=== PATIENT | female | born 1960 | race Caucasian/White ===

== ENCOUNTER 2018-05-06 19:31 | Emergency (ER) | payer OTHER ==
[~2018-05-06] VITALS: Ht 152.4 cm; Wt 67.2 kg
--- NOTE | 2018-05-06 19:47 | ED.ADGEN ---
Past History Past Medical History: Anxiety, GERD, Migraines, Sciatica, Other Past Surgical History: , Hysterectomy, Lumbar Laminectomy, Other Past Surgical History Bladder sling, breast implants, SMA stent and angioplasty Adult General Chief Complaint Chief Complaint ".. I ve been having abd. pain here on the Lt. for past 6 months.. It also present when I wake up in the morning... It just seems worse today... 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 Pt. is described as burning and rates it now as 5-/. Pt. has eaten and has stool today. Pt. was to have follow eval. of SMA and it has been over 10 yrs since colon and EGD. Nothing seems to make pain better. Pt. normally follows at [facility]. Does have some rebound to Lt. upper abd. on exam. Previous abdomen surgeries C-sections, Lumbar Laminectomy, hysterectomy, bladder sling, breast implants, and SMA stenting. Patient states prior ischemic problems treated with the angioplasty and SMA stent. Pt. work up at that time had elevated Amylase. Pt. noted the pain was on the Rt. side of abdomen at that time. . She has quit smoking. Patient denies any intake of bad food. Patient denies any trauma. Patient recent travel and back to [place] visiting family. Pt. denies any specific ill contacts. Patient denies any history immunosuppression. Review of Systems Review of Systems Constitutional: Denies fever or chills [] Eyes: Denies change in visual acuity, redness, or eye pain [] HENT: Denies nasal congestion or sore throat [] Respiratory: Denies cough or shortness of breath [] Cardiovascular: No additional information not addressed in HPI [] GI: Complaints left upper abdominal pain, nausea. Denies vomiting, bloody stools or diarrhea [] : Denies dysuria or hematuria [] Musculoskeletal: Denies back pain or joint pain [] Integument: Denies rash or skin lesions [] Neurologic: Denies headache, focal weakness or sensory changes [] Endocrine: Denies polyuria or polydipsia [] All other systems were reviewed and found to be within normal limits, except as documented in this note. Family History Family History Non- contributory Current Medications Current Medications Current Medications Medications (Trade) Dose Ordered Sig/Marnie Start Time Stop Time Status Last Admin Dose Admin Ceftriaxone Sodium 1 gm/ Sodium Chloride 50 ml @ 100 mls/hr 1X ONCE 05/07/18 01:00 05/07/18 01:09 DC 05/07/18 00:47 100 MLS/HR Ceftriaxone Sodium (Rocephin) 1 gm STK-MED ONCE 05/07/18 00:37 05/07/18 00:38 DC Famotidine (Pepcid Vial) 20 mg 1X ONCE 05/06/18 20:45 05/06/18 20:46 DC 05/06/18 21:09 20 MG Info (Do NOT chart on this entry -- for MONITORING) 1 each PRN DAILY PRN 05/06/18 22:45 05/07/18 01:09 DC Iohexol (Omnipaque 240 Mg/ml) 50 ml STK-MED ONCE 05/06/18 22:33 05/06/18 22:34 DC Iohexol (Omnipaque 300 Mg/ml) 75 ml 1X ONCE 05/06/18 23:00 05/06/18 23:01 DC 05/06/18 23:38 75 ML Lactated Ringer's 1,000 ml @ 100 mls/hr Q10H 05/06/18 20:30 05/07/18 01:09 DC 05/06/18 21:09 100 MLS/HR Magnesium Hydroxide (Milk Of Magnesia) 2,400 mg 1X ONCE 05/07/18 01:00 05/07/18 01:01 DC 05/07/18 00:49 2,400 MG Morphine Sulfate (Morphine 10mg Syringe) 5 mg 1X ONCE 05/07/18 00:00 05/07/18 00:01 DC 05/07/18 00:46 5 MG Ondansetron HCl (Zofran) 8 mg 1X ONCE 05/06/18 20:45 05/06/18 20:46 DC 05/06/18 21:09 8 MG Allergies Allergies Allergies Coded Allergies Type Severity Reaction Last Updated Verified NKMA Allergy Unknown 05/06/18 Yes NSAIDS (Non-Steroidal Anti-Inflamma Adverse Reaction Intermediate is on plavix 05/06/18 Yes Physical Exam Physical Exam Constitutional: Moderate distress, non-toxic appearance. [] HENT: Normocephalic, atraumatic, bilateral external ears normal, oropharynx moist, no oral exudates, nose normal. [] Eyes: PERRLA, EOMI, conjunctiva normal, no discharge. [] Neck: Normal range of motion, no tenderness, supple, no stridor. [] Cardiovascular:Heart rate regular rhythm, no murmur [] Lungs & Thorax: Bilateral breath sounds equal at apexes on auscultation [] Breast implants. Abdomen: Bowel sounds normal, soft, left upper quadrant tenderness, no masses, no pulsatile masses. Distended. [] Mild rebound to left upper quadrant. Old surgery scars Skin: Warm, dry, no erythema, no rash. [] Back: No tenderness, no CVA tenderness. [Old surgery scar. Extremities: No tenderness, no cyanosis, no clubbing, ROM intact, no edema. [] No heel tap or psoas Neurologic: Alert and oriented X 3, normal motor function, normal sensory function, no focal deficits noted. [] Psychologic: Affect anxious, judgement normal, mood normal. [] Current Patient Data Vital Signs Vital Signs Date Time Temp Pulse Resp B/P (MAP) Pulse Ox O2 Delivery O2 Flow Rate FiO2 05/07/18 00:40 69 20 130/71 (90) Room Air 05/06/18 19:40 98.1 99 Lab Results Laboratory Tests Test 05/06/18 20:00 05/06/18 20:10 Urine Collection Type Void Urine Color Yellow Urine Clarity Clear Urine pH 5.5 Urine Specific [place] 1.010 Urine Protein Neg (NEG-TRACE) Urine Glucose (UA) Neg mg/dL (NEG) Urine Ketones (Stick) Neg mg/dL (NEG) Urine Blood Small (NEG) Urine Nitrite Neg (NEG) Urine Bilirubin Neg (NEG) Urine Urobilinogen Dipstick 0.2 mg/dL (0.2 mg/dL) Urine Leukocyte Esterase Small (NEG) Urine RBC Occ /HPF (0-2) Urine WBC 5-10 /HPF (0-4) Urine Squamous Epithelial Cells Mod /LPF Urine Bacteria 0 /HPF (0-FEW) Urine Mucus Slight /LPF White Blood Count 7.6 x10^3/uL (4.0-11.0) Red Blood Count 4.09 x10^6/uL (3.50-5.40) Hemoglobin 12.5 g/dL (12.0-15.5) Hematocrit 37.2 % (36.0-47.0) Mean Corpuscular Volume 91 fL (79-100) Mean Corpuscular Hemoglobin 31 pg (25-35) Mean Corpuscular Hemoglobin Concent 34 g/dL (31-37) Red Cell Distribution Width 13.6 % (11.5-14.5) Platelet Count 247 x10^3/uL (140-400) Neutrophils (%) (Auto) 46 % (31-73) Lymphocytes (%) (Auto) 46 % (24-48) Monocytes (%) (Auto) 6 % (0-9) Eosinophils (%) (Auto) 1 % (0-3) Basophils (%) (Auto) 1 % (0-3) Neutrophils # (Auto) 3.5 x10^3uL (1.8-7.7) Lymphocytes # (Auto) 3.4 x10^3/uL (1.0-4.8) Monocytes # (Auto) 0.5 x10^3/uL (0.0-1.1) Eosinophils # (Auto) 0.1 x10^3/uL (0.0-0.7) Basophils # (Auto) 0.0 x10^3/uL (0.0-0.2) Prothrombin Time 9.7 SEC (9.4-11.4) Prothrombin Time INR 1.0 (0.9-1.1) PTT 24 SEC (23-33) Sodium Level 139 mmol/L (136-145) Potassium Level 3.6 mmol/L (3.5-5.1) Chloride Level 102 mmol/L (98-107) Carbon Dioxide Level 24 mmol/L (21-32) Anion Gap 13 (6-14) Blood Urea Nitrogen 14 mg/dL (7-20) Creatinine 0.8 mg/dL (0.6-1.0) Estimated GFR (Cockcroft-Gault) 74.2 Glucose Level 101 mg/dL (70-99) H Calcium Level 9.3 mg/dL (8.5-10.1) Total Bilirubin 0.2 mg/dL (0.2-1.0) Direct Bilirubin < 0.1 mg/dL (0.0-0.2) Aspartate Amino Transferase (AST) 16 U/L (15-37) Alanine Aminotransferase (ALT) 24 U/L (14-59) Alkaline Phosphatase 77 U/L (46-116) Creatine Kinase 121 U/L (26-192) Troponin I Quantitative < 0.017 ng/mL (0-0.055) Total Protein 7.6 g/dL (6.4-8.2) Albumin 4.2 g/dL (3.4-5.0) Amylase Level 57 U/L (25-115) Lipase 159 U/L (73-393) EKG EKG My interpretation EKG shows a sinus rhythm at 69 bpm. There is some non- specific contour changes anterior septal region. But no findings acute STEMI of contralateral changes.[] Radiology/Procedures Radiology/Procedures My interpretation of abdomen film shows no acute cardiopulmonary findings on chest portion of film. No free air in the diaphragm. Bilateral breast implants. Necklace. Abdomen portion of film shows previous surgery clips. Nonobstructive bowel gas pattern however there is significant amount of stool throughout the colon. Stomach portion of film has mildly distended. The SMA stent is visible in mid abdomen.[] CT of abdomen shows no acute surgical processes see formal report when available Course & Med Decision Making Course & Med Decision Making Pertinent Labs and Imaging studies reviewed. (See chart for details) Patient's stay on a clear fluid diet only for the next 2 days. No solids or milk products or milk. Must allow bowel rest. Must follow-up primary care and GI. Patient is overdue for EGD and colonoscopy. Patient to follow-up and have SMA stent flow evaluated. May require angiogram evaluation of abdomen arterial circulation . Pt. may be able to have a ultrasound evaluation of the SMA stent. May need follow at a teaching center for these evaluations or return to [facility]. Patient to take Zantac 150 mg twice a day in event gastritis is cause of pain. Pt. to take Keflex 500 three times a day for mild UTI. Must schedule follow up with GI and primary. Continue Plavix. Have repeat Amylase and Lipase these tend to elevate if cause of pain is ischemic bowel issues. Pt. currently declines admission or transfer pt exhibit UCAR capacity and seems aware of risks of acute Ischemic event of mesentery arteries. [] Final Impression Final Impression 1. Abdomen Pain 2. Constipation 3. Hx. SMA stent 4. UTI[] Dragon Disclaimer Dragon Disclaimer This electronic medical record was generated, in whole or in part, using a voice recognition dictation system. MONICA MIRANDA MD May 06, 2018 19:47
[2018-05-06] MEDS ORDERED: ATOR20TA PO (20:25)
[2018-05-06] MEDS ORDERED: MAGN400C PO (20:25)
[2018-05-06] MEDS ORDERED: RIZA10TA PO (20:25)
[2018-05-06] MEDS ORDERED: ASPI-630 PO (20:25)
[2018-05-06] MEDS ORDERED: CLOP75TA57 PO (20:25)
[2018-05-06] MEDS ORDERED: ACET500T68 PO (20:25)
[2018-05-06] MEDS ORDERED: IV RINGERS SOLUTION,LACTATED 1,000 ML IV SCH (20:30)
[2018-05-06 20:40] LABS: BASO % 1 % (0-3); EOS # 0.1 x10^3/uL (0.0-0.7); EOS % 1 % (0-3); HEMATOCRIT 37.2 % (36.0-47.0); HEMOGLOBIN 12.5 g/dL (12.0-15.5); LYMPH # 3.4 x10^3/uL (1.0-4.8); LYMPH % 46 % (24-48); MEAN CORPUSCULAR HEMOGLOBIN 31 pg (25-35); MEAN CORPUSCULAR HGB CONC 34 g/dL (31-37); MEAN CORPUSCULAR VOLUME 91 fL (79-100); MONO # 0.5 x10^3/uL (0.0-1.1); MONO % 6 % (0-9); NEUT # 3.5 x10^3uL (1.8-7.7); NEUT % 46 % (31-73); PLATELET COUNT 247 x10^3/uL (140-400); RED BLOOD COUNT 4.09 x10^6/uL (3.50-5.40); RED CELL DISTRIBUTION WIDTH 13.6 % (11.5-14.5); WHITE BLOOD COUNT 7.6 x10^3/uL (4.0-11.0)
[2018-05-06 20:44] LABS: BACTERIA,URINE 0 /HPF (0-FEW); BILIRUBIN,URINE NEG (NEG); CLARITY,URINE CLEAR; COLOR,URINE YELLOW; GLUCOSE,URINE NEG (NEG); NITRITE,URINE NEG (NEG); RBC,URINE OCC /HPF (0-2); SQUAMOUS EPITHELIAL CELL,UR MOD /LPF; UROBILINOGEN,URINE 0.2 mg/dL (0.2 mg/dL)
[2018-05-06] MEDS ORDERED: FAMOTIDINE 20 MG/2 ML VIAL IVP ONE (20:45)
[2018-05-06] MEDS ORDERED: ONDANSETRON PF 4 MG/2 ML VIAL. IV ONE (20:45)
[2018-05-06 20:47] LABS: ALBUMIN 4.2 g/dL (3.4-5.0); ALK PHOS 77 U/L (46-116); ALT (SGPT) 24 U/L (14-59); AMYLASE 57 U/L (25-115); ANION GAP 13 (6-14); AST (SGOT) 16 U/L (15-37); BLOOD UREA NITROGEN 14 mg/dL (7-20); CALCIUM 9.3 mg/dL (8.5-10.1); CARBON DIOXIDE 24 mmol/L (21-32); CHLORIDE 102 mmol/L (98-107); CREATININE 0.8 mg/dL (0.6-1.0); DIRECT BILIRUBIN < 0.1 mg/dL (0.0-0.2); GFR 74.2; GLUCOSE 101 mg/dL (70-99); LIPASE 159 U/L (73-393); POTASSIUM 3.6 mmol/L (3.5-5.1); SODIUM 139 mmol/L (136-145); TOTAL BILIRUBIN 0.2 mg/dL (0.2-1.0); TOTAL PROTEIN 7.6 g/dL (6.4-8.2)
--- NOTE | 2018-05-06 20:58 | EKG ---
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
[2018-05-06] MEDS ORDERED: IOHEXOL 240 MG/ML 50ML VIAL. ONE (22:33)
[2018-05-06] MEDS ORDERED: CONTRAST GIVEN MC PRN (22:45)
[2018-05-06] MEDS ORDERED: IOHEXOL 300 MG/ML 75 ML VIAL. IV ONE (23:00)
[2018-05-07] MEDS ORDERED: MORPHINE SULFATE 10 MG/ML SYRINGE. SQ ONE
--- NOTE | 2018-05-07 00:04 | RAD ---
CT abdomen and pelvis with IV and oral contrast Clinical Indication: Left upper abdominal pain for 6 months, progressive over the last 3 days COMPARISON: None. TECHNIQUE: Multiple contiguous axial images were obtained throughout the abdomen and pelvis with the use of IV contrast and oral. Axial images were reformatted into coronal and sagittal planes. 75 mL Omni 300 was administered. Abdomen findings: The liver, gallbladder, spleen, pancreas, and adrenal glands are unremarkable. The kidneys are unremarkable. There is no significant mesenteric or retroperitoneal adenopathy identified. There is no evidence of free intraperitoneal fluid or pneumoperitoneum. Visualized portions of the bowel are grossly unremarkable. Normal appendix. SMA stent. Mild atherosclerosis of the abdominal aorta and its branches. Pelvis findings: The bladder and distal ureters are unremarkable. Hysterectomy. There is no significant pelvic ascites. No significant iliac or inguinal adenopathy is identified. No acute osseous abnormality. Mild multilevel degenerative changes of the visualized spine. Multilevel limbus vertebrae. IMPRESSION: No acute intra-abdominal or intrapelvic process identified. PQRS Compliance Statement: One or more of the following individualized dose reduction techniques were utilized for this examination: 1. Automated exposure control 2. Adjustment of the mA and/or kV according to patient size 3. Use of iterative reconstruction technique Electronically signed by: León Canela MD (05/07/2018 12:00 AM) [facility]
[2018-05-07] MEDS ORDERED: cefTRIAXone SODIUM 1 GM VIAL IV ONE (00:37)
[2018-05-07] MEDS ORDERED: CEPH-264 PO (00:38)
[2018-05-07] MEDS ORDERED: RANI150T21 PO (00:38)
[2018-05-07 00:40] VITALS: BP 130/71
[2018-05-07] MEDS ORDERED: MAGNESIUM HYDROXIDE 2,400 MG/30 ML ORAL.SUSP. PO ONE (01:00)
--- NOTE | 2018-05-07 08:33 | RAD ---
Single view chest and upright and supine AP views abdomen 05/06/2018 CLINICAL INDICATION: Left-sided abdominal pain. COMPARISON: Same day CT abdomen and pelvis. FINDINGS: Cardiac and mediastinal silhouettes are unremarkable. No pleural effusion, pneumothorax or focal consolidation. Minimal right basilar atelectasis or scarring. There is a nonobstructive bowel gas pattern. Moderate retained colonic stool throughout. There is a vascular stent in the region of the celiac. No pneumoperitoneum. IMPRESSION: 1. No acute cardiopulmonary abnormality. 2. No radiographic evidence of bowel obstruction or pneumoperitoneum. Electronically signed by: Kain Wilkins MD (05/07/2018 8:30 AM) [facility]
== END 2018-05-07 01:04 | disposition home or self-care (01) ==
LOC: ER 19:31
DX: N39.0 Urinary tract infection, site not specified (principal); K59.00 Constipation, unspecified; F41.9 Anxiety disorder, unspecified; K21.9 Gastro-esophageal reflux disease without esophagitis; G43.909 Migraine, unspecified, not intractable, without status migrainosus; Z98.890 Other specified postprocedural states; Z90.710 Acquired absence of both cervix and uterus; Z98.61 Coronary angioplasty status; Z88.6 Allergy status to analgesic agent
CPT/HCPCS: 36415; 74022; 74177; 80048; 80076; 81001; 82150; 82550; 83690; 84484; 85025; 85610; 85730; 87086; 93005; 96372; 96374; 96375; 99284; J0696; J2270; J2405; J3490; J7120; Q9967; 96365

== ENCOUNTER → 2018-06-16 | Outpatient (CLI) | payer OTHER ==
[~2018-06-16] MED LIST: ACET500T68 PO; ASPI-630 PO; ATOR20TA PO; BARIUM SULFATE 60% 355 ML SUSP PO ONE; CEPH-264 PO; CLOP75TA57 PO; MAGN400C PO; RANI150T21 PO; RIZA10TA PO
--- NOTE | 2018-06-16 15:40 | RAD ---
SMALL BOWEL SERIES History: Left upper quadrant pain for one year, nausea, mesenteric artery stent Comparison: CT exam May 06, 2018 Findings: Small bowel examination was performed. Building Drafting Officer radiograph demonstrates nonobstructive bowel gas pattern. There is stent in the region of the superior mesenteric artery. There is normal transit of contrast through the small bowel, some contrast in the ascending colon at about 110 minutes. Small bowel is not significantly dilated. No definitive stricture is identified. Impression: 1. There is no evidence of obstruction or significant stricture. There is stent in the region of the superior mesenteric artery. Electronically signed by: Evan Rader MD (06/16/2018 3:36 PM) [facility]
== END | disposition home or self-care (01) ==
LOC: RAD 07:36
PROVIDERS: ATTEND Internal Medicine Gastroenterology
DX: R10.32 Left lower quadrant pain (principal); R11.0 Nausea; K58.9 Irritable bowel syndrome, unspecified
CPT/HCPCS: 74250

== ENCOUNTER → 2018-07-03 | Outpatient (CLI) | payer OTHER ==
[~2018-07-03] MED LIST changes: -BARIUM SULFATE 60% 355 ML SUSP PO ONE; +IOHEXOL 350 MG/ML 100 ML VIAL. IV ONE
--- NOTE | 2018-07-03 14:34 | RAD ---
CT angiography of the chest, abdomen, and pelvis 07/03/2018 INDICATION: Superior mesenteric arteries placed since December 2017. History of celiac artery occlusion. Chronic pain. The left upper quadrant midline back pain. Evaluate for mesenteric ischemia. TECHNIQUE: Multidetector CT imaging was obtained of the chest, abdomen and pelvis. Chest imaging was performed both before and after the administration of IV contrast. Abdominal and pelvic imaging was performed following the administration of contrast. 3-D reconstructions of thoracic, abdominal, pelvic vasculature were created on an independent workstation and reviewed. FINDINGS: Heart size is top normal. No pericardial effusion is identified. No mediastinal adenopathy is seen. Artifact from dense contrast in the left brachiocephalic vein obscures the origin of the major arch vessels. No overt evidence of high-grade stenosis or occlusion is identified. The thoracic aorta demonstrates no evidence of dissection or aneurysm. The abdominal aorta demonstrates no evidence of aneurysm or dissection. No significant aortoiliac stenosis is identified. There is a proximal superior mesenteric artery stent, widely patent. 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 There is retrograde filling of a celiac trunk, via the gastroduodenal artery, giving rise to the left gastric artery, splenic artery, and common hepatic artery. Some tortuosity and mild stenosis of the right renal artery is noted. Left renal artery is widely patent. Findings are unchanged. The inferior mesenteric artery is patent and normal caliber. No pneumothorax or pleural effusion is seen. No focal consolidative infiltrate is identified. Mild discoid atelectasis noted in the right middle lobe. Emphysematous changes noted in the lungs. Bilateral breast augmentation noted. No acute osseous changes are identified. Stable degenerative changes lumbosacral junction are noted. IMPRESSION: Occluded celiac artery with patent proximal SMA stent, and retrograde filling of the celiac axis via the GDA. No acute vascular abnormalities are identified. No acute changes from prior exam are seen. CT DOSING PQRS STATEMENT: One or more of the following individualized dose reduction techniques were utilized for this examination: 1. Automated exposure control 2. Adjustment of the mA and/or kV according to patient size 3. Use of iterative reconstruction technique Electronically signed by: Gurmeet Berumen MD (07/03/2018 2:30 PM) [id number]
== END | disposition home or self-care (01) ==
LOC: CT 08:33
PROVIDERS: ATTEND Specialist
DX: I77.4 Celiac artery compression syndrome (principal); J98.11 Atelectasis; I70.1 Atherosclerosis of renal artery; M47.897 Other spondylosis, lumbosacral region; G89.29 Other chronic pain
CPT/HCPCS: 71275; 74174; Q9967

== ENCOUNTER → 2018-12-29 | Outpatient (CLI) | payer OTHER ==
[~2018-12-29] MED LIST changes: -IOHEXOL 350 MG/ML 100 ML VIAL. IV ONE; +RANI-376 PO; -RANI150T21 PO
--- NOTE | 2019-01-19 15:57 | RAD ---
DATE: 01/19/2019 EXAM: MAMMO DIO SCREENING BILATERAL HISTORY: Routine screening. COMPARISON: None This study was interpreted with the benefit of Computerized Aided Detection (CAD). FINDINGS: Breast Density: HETERO The breast parenchyma Is heterogeneously dense, which could reduce sensitivity of mammography. Breast parenchyma level C. The skin and nipples are within normal limits. No suspicious calcifications, spiculated mass or area of architectural distortion. Bilateral breast implants noted. 5 mm round mass in the outer lower quadrant of the left breast approximately 6 cm from the nipple on cc view likely at 3-4:00 position. Round mass with well-circumscribed margins measuring 9 mm in the central breast just medial to the posterior nipple line approximately 4 cm from the nipple on cc view. Another round mass measuring 3 mm medial to the posterior nipple line approximately 5 cm from the nipple on cc view. IMPRESSION: Multiple round masses in the left breast likely cysts or lymph nodes. BI-RADS CATEGORY: 0 INCOMPLETE: NEED ADDITIONAL IMAGING EVAULATION AND/OR PRIOR MAMMOGRAMS FOR COMPARISON RECOMMENDED FOLLOW-UP: ADD ADDITIONAL IMAGING. Ultrasound of the left breast recommended. PQRS compliance statement: Patient information was entered into a reminder system with a target due date for the next mammogram. Mammography is a sensitive method for finding small breast cancers, but it does not detect them all and is not a substitute for careful clinical examination. A negative mammogram does not negate a clinically suspicious finding and should not result in delay in biopsying a clinically suspicious abnormality. "Our facility is accredited by the [employer] Mammography Program."
== END | disposition home or self-care (01) ==
LOC: MAMMO 07:52
PROVIDERS: ATTEND General Practice
DX: Z12.31 Encounter for screening mammogram for malignant neoplasm of breast (principal); N63.23 Unspecified lump in the left breast, lower outer quadrant
CPT/HCPCS: 77063; 77067

== ENCOUNTER → 2019-01-24 | Outpatient (CLI) | payer OTHER ==
--- NOTE | 2019-01-24 16:10 | RAD ---
Thyroid sonogram Clinical indications: Abnormal Thermoscan. FINDINGS: The longitudinal AP and transverse dimensions of the right lobe are 5.2 cm and 1.3 cm and 1.8 cm respectively. The longitudinal AP and transverse dimensions of the left lobe are 3.9 cm and 1.1 cm and 1.7 cm respectively. There is a small colloid cyst of the superior pole of the left lobe measuring 2 mm in size. No thyroid mass is seen otherwise. The isthmus measures 2.2 mm in thickness and is homogeneous. IMPRESSION: No thyroid mass. Small cyst of the left lobe. Electronically signed by: Brien Beck MD (01/24/2019 4:07 PM) [facility]
--- NOTE | 2019-01-24 16:22 | RAD ---
INDICATION: 58 year-old female presents for further evaluation of an abnormality seen on prior mammogram TECHNIQUE: Targeted high resolution sonography of the region of clinical concern was performed. COMPARISON: None FINDINGS: Targeted ultrasound of the mammographic area of concern was performed. 3:00 position, 6 cm from the nipple: An anechoic avascular mass of circumscribed margins and round/oval shape is present. It demonstrates posterior acoustic enhancement and a parallel orientation. It measures 0.4 x 0.3 x 0.4 cm 11:00 position, 4 cm from the nipple: An anechoic avascular mass of circumscribed margins and round/oval shape is present. It demonstrates posterior acoustic enhancement and a parallel orientation. It measures 0.7 x 0.7 x 0.8 cm. 11:00 position, 5 cm from the nipple: A 0.3 x 0.3 x 0.3 cm hypoechoic nodule with slightly irregular margins is seen. IMPRESSION: Probably benign finding. RECOMMENDATION: Recommend follow up left breast ultrasound in 6 months. BI-RADS 3: Probably Benign Electronically signed by: Chad Nelson MD (01/24/2019 4:19 PM) [facility]
== END | disposition home or self-care (01) ==
LOC: US 12:10
PROVIDERS: ATTEND General Practice
DX: E04.1 Nontoxic single thyroid nodule (principal); N63.23 Unspecified lump in the left breast, lower outer quadrant; N63.22 Unspecified lump in the left breast, upper inner quadrant; Z80.8 Family history of malignant neoplasm of other organs or systems
CPT/HCPCS: 76536; 76641

== ENCOUNTER 2019-06-30 13:26 | Emergency (ER) | payer OTHER ==
[2019-06-30 13:36] VITALS: BP 139/89
[2019-06-30] MEDS ORDERED: DOXY100T PO (14:29)
--- NOTE | 2019-06-30 14:29 | RAD ---
CHEST PA LATERAL INDICATION: Cough. COMPARISON STUDY: None. FINDINGS: Lungs: Normal lung volume. No pulmonary mass or consolidation. The tracheobronchial tree and hilar structures are normal. Pleura: No pleural effusion or pneumothorax. Heart and Mediastinum: The cardiomediastinal silhouette is normal. The great vessels of the thorax are normal. Bones and Soft Tissues: The bones and soft tissues are within normal limits. IMPRESSION: No acute cardiopulmonary process. Electronically signed by: Evan Montana MD (06/30/2019 2:26 PM) [facility]
--- NOTE | 2019-06-30 17:19 | PHYS DOC ---
Past History Past Medical History: No Pertinent History Past Surgical History: Hysterectomy, Other Additional Past Surgical Histo: stent placed in abdomen for stenosis 3 years ag o Alcohol Use: None Drug Use: None Adult General Chief Complaint Chief Complaint: COUGH HPI HPI Patient is a 59-year-old female presenting with chief complaint of cough productive of yellow sputum and chest tightness with coughing and runny nose sinus congestion postnasal drip going on 10 days now was noticing symptoms. She says she usually gets an antibiotic after an over a week. 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 Review of Systems Review of Systems Constitutional: Denies fever or chills [] Eyes: Denies change in visual acuity, redness, or eye pain [] Musculoskeletal: Denies back pain or joint pain [] Integument: Denies rash or skin lesions [] All other systems were reviewed and found to be within normal limits, except as documented in this note. Allergies Allergies Allergies Coded Allergies Type Severity Reaction Last Updated Verified NKMA Allergy Unknown 05/06/18 Yes NSAIDS (Non-Steroidal Anti-Inflamma Adverse Reaction Intermediate is on plavix 05/06/18 Yes Physical Exam Physical Exam Constitutional: Well developed, well nourished, no acute distress, non-toxic appearance. [] HENT: Normocephalic, atraumatic, bilateral external ears normal, oropharynx moist, no oral exudates, nose normal. [] Eyes: PERRLA, EOMI, conjunctiva normal, no discharge. [] Neck: Normal range of motion, no tenderness, supple, no stridor. [] Cardiovascular:Heart rate regular rhythm, no murmur [] Lungs & Thorax: Bilateral breath sounds clear to auscultation [] Abdomen: Bowel sounds normal, soft, no tenderness, no masses, no pulsatile masses. [] Skin: Warm, dry, no erythema, no rash. [] Back: No tenderness, no CVA tenderness. [] Extremities: No tenderness, no cyanosis, no clubbing, ROM intact, no edema. [] Neurologic: Alert and oriented X 3, normal motor function, normal sensory function, no focal deficits noted. [] Psychologic: Affect normal, judgement normal, mood normal. [] Current Patient Data Vital Signs Vital Signs Date Time Temp Pulse Resp B/P (MAP) Pulse Ox O2 Delivery O2 Flow Rate FiO2 06/30/19 13:36 98.0 109 20 96 Room Air one Temperature (Fahrenheit): * 98.0 degrees F (97.6-99.5) Patient Temperature * 98.0 degrees F (97.5-99.5) Temperature Source * Oral Blood Pressure Systolic * 139 mm Hg (100-140) Blood Pressure Diastolic * 89 mm Hg (60-100) Blood Pressure Mean * 106 mm Hg Pulse Rate * 109 beats per minute (60-90) H Respiratory Rate * 20 breaths per minute (12-24) Oxygen Delivery Method * Room Air Bedside Pulse Oximetry * 96 % Treatment Prior to Arrival * No Complaint of Pain * No LOC * Alert Coma Scale Eye Opening * 4-Spontaneous Coma Scale Motor EKG EKG [] Radiology/Procedures Radiology/Procedures [] Impressions: Lungs: Normal lung volume. No pulmonary mass or consolidation. The tracheobronchial tree and hilar structures are normal. Pleura: No pleural effusion or pneumothorax. Heart and Mediastinum: The cardiomediastinal silhouette is normal. The great vessels of the thorax are normal. Bones and Soft Tissues: The bones and soft tissues are within normal limits. IMPRESSION: No acute cardiopulmonary process. Electronically signed by: Darrick Greene MD (06/30/2019 2:26 PM) [facility] DICTATED AND SIGNED BY: DARRICK GREENE MD DATE: 06/30/19 142 CC: ALEXANDRA BECKMAN MD; KEVIN FELICIANO DO ~ Course & Med Decision Making Course & Med Decision Making Pertinent Labs and Imaging studies reviewed. (See chart for details) 59-year-old female presenting with cough rhythm one week slowly getting worse chest x-ray clear wants antibiotics talked about risks and benefits discussion for doxycycline was provided Dragon Disclaimer Dragon Disclaimer This electronic medical record was generated, in whole or in part, using a voice recognition dictation system. Departure Departure: Impression: Primary Impression: Bronchitis Disposition: HOME, SELF-CARE Condition: STABLE Patient Instructions: Cough, Adult, [id number] Scripts Doxycycline Hyclate (DOXYCYCLINE HYCLATE) 100 Mg Tablet 1 TAB PO BID for cough, #14 TAB Prov: ALEXANDRA BECKMAN MD 06/30/19 ALEXANDRA BECKMAN MD Jun 30, 2019 17:19
== END 2019-06-30 14:43 | disposition home or self-care (01) ==
LOC: ER 13:26
DX: J40 Bronchitis, not specified as acute or chronic (principal); Z88.6 Allergy status to analgesic agent
CPT/HCPCS: 71046; 99284

== ENCOUNTER 2020-02-09 11:13 | Emergency (ER) | payer OTHER ==
[~2020-02-09] VITALS: Ht 152.4 cm; Wt 59.0 kg
[~2020-02-09 11:13] MED LIST changes: +DOXY100T PO
[2020-02-09] MEDS ORDERED: MECLIZINE 12.5 MG TABLET. PO ONE (11:30)
[2020-02-09] MEDS ORDERED: MECL-75 PO (11:36)
--- NOTE | 2020-02-09 11:37 | PHYS DOC ---
Past History Past Medical History: Other Additional Past Medical Histor: SUPERIOR MESSENTERIC ARTERY STENT Past Surgical History: Hysterectomy, Other Additional Past Surgical Histo: stent placed in abdomen for stenosis 3 years ago Alcohol Use: Occasionally Drug Use: None Adult General Chief Complaint Chief Complaint: DIZZY/LIGHT HEADED HPI HPI Patient is a 59-year-old female who presents for dizziness via EMS. Onset was this morning immediately on waking. Patient reports waking up, rolling over and becoming immediately dizzy describing rotational type dizziness. Patient tried to get up with further exacerbated her symptoms. She then laid back down and was still which alleviated said symptoms. Patient rested for several minutes and then when she changed position to try and get out of bed she felt recurrence of symptoms prompting her to call EMS. On arrival to our ER, patient asymptomatic. Patient reports swimming for last 6 days and being more physically active than usual because her grandchildren are visiting from out of town. She also admits participating in somersault and handstand competitions in the pool with her grandchildren. Denies any recent URI-like symptoms, no febrile illness, no cough, shortness of breath, chest pain, abdominal pain, urinary symptoms, changes in motor or sensory function, no new neurological deficits. Patient concerned this might be vertigo, says she has distant history of this but has never had an episode with dizziness and associated nausea like today. Of note, patient admits having recent CT head in outpatient setting for other noncontributory reason that was negative Review of Systems Review of Systems Fourteen body systems of review of systems have been reviewed. See HPI for pertinent positives and negative responses, other simms all other systems are negative, non-pertinent or non-contributory Current Medications Current Medications Current Medications Medications (Trade) Dose Ordered Sig/Marnie Start Time Stop Time Status Last Admin Dose Admin Meclizine HCl (Antivert) 25 mg 1X ONCE 02/09/20 11:30 02/09/20 11:31 UNV Allergies Allergies Allergies Coded Allergies Type Severity Reaction Last Updated Verified NKMA Allergy Unknown 05/06/18 Yes NSAIDS (Non-Steroidal Anti-Inflamma Adverse Reaction Intermediate is on plavix 05/06/18 Yes Physical Exam Physical Exam Constitutional: Well developed, well nourished, no acute distress, non-toxic appearance. No signs of trauma HENT: Normocephalic, atraumatic, bilateral external ears normal, mild fluid behind right tympanic membrane without any other signs of acute disease, no ear exudates, oropharynx moist, no oral exudates, nose normal. Eyes: PERRLA, EOMI, conjunctiva normal, no discharge. Neck: Normal range of motion, no tenderness, supple, no stridor. Cardiovascular: Heart rate regular, sinus rhythm, no murmurs rubs or gallops Lungs & Thorax: Bilateral breath sounds clear to auscultation Abdomen: Bowel sounds normal, soft, no tenderness, no masses, no pulsatile masses. Nonsurgical abdomen, no peritoneal signs Skin: Warm, dry, no erythema, no rash. Back: No tenderness, no CVA tenderness. Extremities: No tenderness, no cyanosis, no clubbing, ROM intact, no edema. Neurologic: Alert and oriented X 3, cranial nerves II through XII intact, negative hints exam, normal motor & sensory function, no focal deficits noted. Positive Gering-Hallpike maneuver Psychologic: Affect normal, judgement normal, mood normal. Current Patient Data Vital Signs Vital Signs Date Time Temp Pulse Resp B/P (MAP) Pulse Ox O2 Delivery O2 Flow Rate FiO2 02/09/20 11:17 97.5 85 18 136/77 (96) 99 Room Air EKG EKG EKG ordered and interpreted by myself at 1127 hrs. as sinus rhythm at 84 bpm, unremarkable intervals, no axis deviation, no acute ischemic findings, no STEMI Radiology/Procedures Radiology/Procedures [] Course & Med Decision Making Course & Med Decision Making Asymptomatic patient seen on immediate ER arrival via EMS ABCs unremarkable Comprehensive history and physical exam obtained with additional diagnostic studies ordered, negative hints exam, positive Mili Hallpike maneuver Discussed role of laboratory analysis in addition to further diagnostic imaging; however, history and physical examination consistent with BPPV Joint decision to defer any further invasive diagnostic work-up and absence of any red flag physical exam findings and recent non-concerning CT head performed in outpatient setting 25 mg p.o. meclizine administered with great symptomatic relief. Patient declined Marcella maneuver. Patient ambulated in ER without difficulty or recurrence of symptoms Discussed most likely diagnosis of BPPV, educated on medical therapy and likely need for other interventions such as Marcella maneuver versus further medical management if symptoms do not fully resolve Discussed this might be an acute presentation of more concerning pathology and stressed importance of close PCP follow-up and returning to ER as necessary Strict return precautions discussed with good understanding, all questions and concerns addressed prior to ER departure home in stable condition Maxine Disclaimer Maxine Disclaimer This electronic medical record was generated, in whole or in part, using a voice recognition dictation system. Departure Departure: Impression: Primary Impression: Dizziness Additional Impression: BPPV (benign paroxysmal positional vertigo) Disposition: HOME/RESIDENCE PRIOR TO ADM Condition: STABLE Referrals: KEVIN FELICIANO DO (PCP) Patient Instructions: Benign Positional Vertigo, Dizziness Scripts Meclizine Hcl (MECLIZINE HCL) 25 Mg Tablet 1 TAB PO PRN TID for BPPV, #30 TAB Prov: BONNIE ROYAL DO 02/09/20 Justification of Admission: Justification of Admission: Justification of Admission Dx: N/A Problem Qualifiers BONNIE ROYAL DO Feb 09, 2020 11:37
[2020-02-09 12:10] VITALS: BP 117/70
[2020-02-09] MEDS ORDERED: ONDANSETRON ODT 4 MG TAB.RAPDIS ONE (12:12)
[2020-02-09] MEDS ORDERED: ONDANSETRON ODT 4 MG TAB.RAPDIS PO ONE (12:15)
--- NOTE | 2020-02-11 06:42 | EKG ---
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
== END 2020-02-09 12:20 | disposition home or self-care (01) ==
LOC: ER 11:13
DX: H81.11 Benign paroxysmal vertigo, right ear (principal); Z88.6 Allergy status to analgesic agent
CPT/HCPCS: 82947; 99283; J8597; Q0162; 93005

== ENCOUNTER 2020-02-19 10:38 | Emergency (ER) | payer OTHER ==
[~2020-02-19] VITALS: Ht 152.4 cm; Wt 83.6 kg
[~2020-02-19 10:38] MED LIST changes: +MECL-75 PO
[2020-02-19 11:53] LABS: BASO # 0.1 x10^3/uL (0.0-0.2); BASO % 1 % (0-3); EOS # 0.1 x10^3/uL (0.0-0.7); EOS % 1 % (0-3); HEMATOCRIT 38.3 % (36.0-47.0); LYMPH # 2.3 x10^3/uL (1.0-4.8); LYMPH % 31 % (24-48); MEAN CORPUSCULAR HEMOGLOBIN 32 pg (25-35); MEAN CORPUSCULAR HGB CONC 34 g/dL (31-37); MEAN CORPUSCULAR VOLUME 93 fL (79-100); MONO # 0.5 x10^3/uL (0.0-1.1); MONO % 6 % (0-9); NEUT # 4.5 x10^3uL (1.8-7.7); NEUT % 61 % (31-73); PLATELET COUNT 241 x10^3/uL (140-400); RED BLOOD COUNT 4.11 x10^6/uL (3.50-5.40); RED CELL DISTRIBUTION WIDTH 13.6 % (11.5-14.5); WHITE BLOOD COUNT 7.4 x10^3/uL (4.0-11.0)
[2020-02-19 12:05] LABS: CALCIUM 9.1 mg/dL (8.5-10.1); CREATININE 0.9 mg/dL (0.6-1.0); GFR 64.5
--- NOTE | 2020-02-19 12:13 | RAD ---
EXAM: Right lower extremity venous Doppler sonogram. HISTORY: Pain and swelling. TECHNIQUE: Higgins scale and color Doppler sonographic evaluation of the right lower extremity veins with spectral waveform analysis was performed. FINDINGS: There is normal color flow, normal compressibility and there are normal spectral waveforms in the common femoral, superficial femoral, popliteal, posterior tibial and greater saphenous veins. IMPRESSION: No Doppler evidence of lower extremity deep venous thrombosis. Electronically signed by: Shayy Benavides MD (02/19/2020 12:10 PM) [id number]
--- NOTE | 2020-02-19 12:41 | PHYS DOC ---
Past History Past Medical History: High Cholesterol, Other Additional Past Medical Histor: SUPERIOR MESSENTERIC ARTERY STENT, blood clots. Past Surgical History: Hysterectomy, Other Additional Past Surgical Histo: stent placed in abdomen for stenosis 3 years ago Alcohol Use: Occasionally Drug Use: None General Adult EDM: Chief Complaint: LOWER EXTREMITY SWELLING HPI: HPI: The history was obtained from the patient. 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 She states the stent was placed in her superior mesenteric artery. She states she is never had a blood clot in her extremities or lungs. She denies any history of coagulopathic disease. She states that she was previously taking Plavix for her SMA clot and stent placement but quit taking this several months ago per the advice of her GI specialist. She notes for the past 2 days she has had some right lower extremity leg cramping. She denies any increase in swelling or warmth. She does note scattered ecchymosis to the left side of her calf. Denies trauma. Denies fevers. States the pain is somewhat worse when she ambulates. Denies chest pain or shortness breath. Denies syncope. No other complaints. Review of Systems: Review of Systems: Constitutional: Denies fever or chills Eyes: Denies change in visual acuity HENT: Denies nasal congestion or sore throat Respiratory: Denies cough or shortness of breath Cardiovascular: Denies chest pain or edema GI: Denies abdominal pain, nausea, vomiting, bloody stools or diarrhea : Denies dysuria Musculoskeletal: Positive for right lower extremity pain Integument: Denies rash Neurologic: Denies headache, focal weakness or sensory changes Endocrine: Denies polyuria or polydipsia Lymphatic: Denies swollen glands Psychiatric: Denies depression or anxiety Heart Score: Risk Factors: Risk Factors: DM, Current or recent (<one month) smoker, HTN, HLP, family history of CAD, obesity. Risk Scores: Score 0 - 3: 2.5% MACE over next 6 weeks - Discharge Home Score 4 - 6: 20.3% MACE over next 6 weeks - Admit for Clinical Observation Score 7 - 10: 72.7% MACE over next 6 weeks - Early Invasive Strategies Allergies: Allergies: Allergies Coded Allergies Type Severity Reaction Last Updated Verified NSAIDS (Non-Steroidal Anti-Inflamma Adverse Reaction Intermediate is on plavix 05/06/18 Yes Physical Exam: PE: Constitutional: Well developed, well nourished, no acute distress, non-toxic appearance. [] HENT: Normocephalic, atraumatic, bilateral external ears normal, oropharynx moist, no oral exudates, nose normal. [] Eyes: PERRLA, EOMI, conjunctiva normal, no discharge. [] Neck: Normal range of motion, no tenderness, supple, no stridor. [] Cardiovascular:Heart rate regular rhythm, no murmur [] Lungs & Thorax: Bilateral breath sounds clear to auscultation [] Abdomen: soft, no tenderness, no masses, no pulsatile masses. [] Skin: Warm, dry, no erythema, no rash. [] Back: No tenderness, no CVA tenderness. [] Extremities: +2-4 DP pulses bilaterally. Brisk capillary refill bilaterally. No unilateral swelling noted to the right lower extremity. No edema appreciated. No increase in warmth. Dime size ecchymosis lesions noted to the medial aspect of the right calf. No petechiae purpura or bulla appreciated. No crepitus palpated. Negative Homans sign. Neurologic: Alert and oriented X 3, normal motor function, normal sensory function, no focal deficits noted. [] Psychologic: Affect normal, judgement normal, mood normal. [] Current Patient Data: Labs: Laboratory Tests Test 02/19/20 11:25 White Blood Count 7.4 x10^3/uL (4.0-11.0) Red Blood Count 4.11 x10^6/uL (3.50-5.40) Hemoglobin 13.0 g/dL (12.0-15.5) Hematocrit 38.3 % (36.0-47.0) Mean Corpuscular Volume 93 fL (79-100) Mean Corpuscular Hemoglobin 32 pg (25-35) Mean Corpuscular Hemoglobin Concent 34 g/dL (31-37) Red Cell Distribution Width 13.6 % (11.5-14.5) Platelet Count 241 x10^3/uL (140-400) Neutrophils (%) (Auto) 61 % (31-73) Lymphocytes (%) (Auto) 31 % (24-48) Monocytes (%) (Auto) 6 % (0-9) Eosinophils (%) (Auto) 1 % (0-3) Basophils (%) (Auto) 1 % (0-3) Neutrophils # (Auto) 4.5 x10^3uL (1.8-7.7) Lymphocytes # (Auto) 2.3 x10^3/uL (1.0-4.8) Monocytes # (Auto) 0.5 x10^3/uL (0.0-1.1) Eosinophils # (Auto) 0.1 x10^3/uL (0.0-0.7) Basophils # (Auto) 0.1 x10^3/uL (0.0-0.2) Prothrombin Time 9.8 SEC (9.4-11.4) Prothrombin Time INR 0.9 (0.9-1.1) Activated Partial Thromboplast Time 26 SEC (23-33) Sodium Level 139 mmol/L (136-145) Potassium Level 4.0 mmol/L (3.5-5.1) Chloride Level 104 mmol/L (98-107) Carbon Dioxide Level 24 mmol/L (21-32) Anion Gap 11 (6-14) Blood Urea Nitrogen 15 mg/dL (7-20) Creatinine 0.9 mg/dL (0.6-1.0) Estimated GFR (Cockcroft-Gault) 64.5 Glucose Level 101 mg/dL (70-99) H Lactic Acid Level 1.0 mmol/L (0.4-2.0) Calcium Level 9.1 mg/dL (8.5-10.1) Vital Signs: Vital Signs Date Time Temp Pulse Resp B/P (MAP) Pulse Ox O2 Delivery O2 Flow Rate FiO2 02/19/20 11:12 98.1 104 16 137/107 (117) 98 Room Air EKG: EKG: [] Radiology/Procedures: Radiology/Procedures: [address] [address] IMAGING REPORT Signed PATIENT: GLADYS VANN MACCOUNT: [id number] : 1960 LOCATION: ER AGE: 59 SEX: F EXAM STATUS: REG ER ORD. PHYSICIAN: EUGENIO VILLAGRAN DO REASON: RLE SWELLING PROCEDURE: VENOUS LOWER EXTREMITY RIGHT EXAM: Right lower extremity venous Doppler sonogram. HISTORY: Pain and swelling. TECHNIQUE: Higgins scale and color Doppler sonographic evaluation of the right lower extremity veins with spectral waveform analysis was performed. FINDINGS: There is normal color flow, normal compressibility and there are normal spectral waveforms in the common femoral, superficial femoral, popliteal, posterior tibial and greater saphenous veins. IMPRESSION: No Doppler evidence of lower extremity deep venous thrombosis. Electronically signed by: Shayy Walsh MD (02/19/2020 12:10 PM) [id number] DICTATED AND SIGNED BY: SHAYY WALSH MD DATE: 02/19/20 1210 CC: KEVIN FELICIANO DO; EUGENIO VILLAGRAN DO ~ [] Course & Med Decision Making: Course & Med Decision Making Pertinent Labs and Imaging studies reviewed. (See chart for details) [] Patient is a well-appearing 59-year-old female presents with chief complaint of right lower extremity pain. Ultrasound imaging was negative for DVT. I did recommend obtaining CBC to evaluate her platelet levels as well as a potential d-dimer to fully exclude the potential for occult right lower extremity blood clot. Patient is declining lab work at this time. No clinical signs of arterial occlusion. Patient states she will follow-up with her primary care physician. Vital signs remained stable on repeat examination. Return precautions discussed and understood. Stable for discharge home. Dragon Disclaimer: Maxine Disclaimer: This electronic medical record was generated, in whole or in part, using a voice recognition dictation system. Departure Departure: Impression: Primary Impression: Right leg pain Disposition: 01 HOME/RESIDENCE PRIOR TO ADM Condition: STABLE Referrals: KEVIN FELICIANO DO (PCP) Patient Instructions: Leg Cramps Additional Instructions: Please follow-up with your primary care physician in the next 2 to 3 days. Justification of Admission: Justification of Admission: Justification of Admission Dx: N/A EUGENIO VILLAGRAN DO Feb 19, 2020 12:41
[2020-02-19 12:42] VITALS: BP 112/82
== END 2020-02-19 12:45 | disposition home or self-care (01) ==
LOC: ER 10:38
DX: S80.11XA Contusion of right lower leg, initial encounter (principal); M79.604 Pain in right leg; E78.00 Pure hypercholesterolemia, unspecified; Z88.6 Allergy status to analgesic agent; X58.XXXA Exposure to other specified factors, initial encounter; Y93.89 Activity, other specified; Y92.89 Other specified places as the place of occurrence of the external cause; Y99.8 Other external cause status
CPT/HCPCS: 36415; 80048; 83605; 85025; 85610; 85730; 93971; 99284

== ENCOUNTER 2021-01-12 17:36 | Emergency (ER) | payer OTHER ==
[~2021-01-12] VITALS: Ht 152.4 cm; Wt 56.4 kg
[2021-01-12 17:57] VITALS: BP 119/73
[2021-01-12] MEDS ORDERED: ACETAMINOPHEN 500 MG TABLET PO ONE (18:45)
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
== END 2021-01-12 19:11 | disposition home or self-care (01) ==
LOC: ER 17:36
DX: R07.81 Pleurodynia (principal); M25.531 Pain in right wrist; M79.604 Pain in right leg; E78.00 Pure hypercholesterolemia, unspecified; Z88.6 Allergy status to analgesic agent
CPT/HCPCS: 71101; 73110; 73130; 99284

== ENCOUNTER 2021-03-17 22:03 | Emergency (ER) | payer OTHER ==
[~2021-03-17] VITALS: Ht 152.4 cm; Wt 56.4 kg
[2021-03-17 22:14] VITALS: BP 116/70
--- NOTE | 2021-03-17 22:24 | PHYS DOC ---
Past History Past Medical History: High Cholesterol, Other Additional Past Medical Histor: SUPERIOR MESSENTERIC ARTERY STENT, DVT, gastroparesis (ZIA BONILLA APRN) Past Surgical History: Hysterectomy, Other Additional Past Surgical Histo: stent placed in abdomen for stenosis 3 years ago, lower back sx (ZIA BONILLA APRN) Alcohol Use: None Drug Use: None (ZIA BONILLA APRN) General Adult EDM: Chief Complaint: HAND PROBLEM HPI: HPI: Patient is a 60-year-old female who presents to the emergency department for left hand pain after she smashed in a door yesterday. Patient rates pain 5 out of 10. No treatment prior to arrival. Most of patient's pain is located to the dorsal aspect of her hand. She states that she has been applying ice and elev ating her extremity. She denies any decreased sensation to hand. She states limited flexion due to pain and swelling. (ZIA BONILLA APRN) Review of Systems: Review of Systems: 14 body systems of the review of systems have been reviewed. See HPI for pertinent positive and negative responses, otherwise all other systems are negative, nonpertinent or noncontributory (ZIA BONILLA APRN) Allergies: Allergies: Allergies Coded Allergies Type Severity Reaction Last Updated Verified NSAIDS (Non-Steroidal Anti-Inflamma Adverse Reaction Intermediate is on plavix 05/06/18 Yes (ZIA BONILLA APRN) Physical Exam: PE: Constitutional: Well developed, well nourished, no acute distress, non-toxic appearance. [] HENT: Normocephalic, atraumatic Eyes: PERRL, EOMI, conjunctiva normal, no discharge. [] Neck: Normal range of motion, no stridor Cardiovascular: Normal peripheral perfusion Lungs & Thorax: Normal work of breathing, no tachypnea Abdomen: Soft and flat Skin: Warm, dry, no erythema, no rash. [] Back: Normal range of motion Extremities: No tenderness, no cyanosis, no clubbing, ROM intact, no edema. Left hand: Swelling and ecchymosis noted to dorsal aspect of hand, limited flexion due to pain and swelling, extension intact, neuro intact, no obvious deformity Neurologic: Alert and oriented X 3, normal motor function, normal sensory function, no focal deficits noted. [] Psychologic: Affect normal, judgement normal, mood normal. [] (ZIA BONILLA APRN) EKG: EKG: [] (ZIA BONILLA APRN) Radiology/Procedures: Radiology/Procedures: []REASON: Left hand injury, pain with swelling PROCEDURE: HAND LEFT 3V Three-view left hand dated 03/17/2021. No comparison available. CLINICAL INDICATION: Pain. FINDINGS: 3 views left hand show normal bony alignment. No displaced fracture. No periostitis or bone destruction. No acute osseous or articular abnormality. IMPRESSION: No acute radiographic abnormality. Electronically signed by: Shelton Santos MD (03/17/2021 11:38 PM) [facility] DICTATED AND SIGNED BY: SHELTON SANTOS MD DATE: 03/17/21 5142 CC: EMERGENCY,DEPARTMENT; ZIA BONILLA APRN; KEVIN FELICIANO DO ~MTH0 0 (ZIA BONILLA APRN) Heart Score: C/O Chest Pain: N/A Risk Factors: Risk Factors: DM, Current or recent (<one month) smoker, HTN, HLP, family history of CAD, obesity. Risk Scores: Score 0 - 3: 2.5% MACE over next 6 weeks - Discharge Home Score 4 - 6: 20.3% MACE over next 6 weeks - Admit for Clinical Observation Score 7 - 10: 72.7% MACE over next 6 weeks - Early Invasive Strategies (ZIA BONILLA APRN) Course & Med Decision Making: Course & Med Decision Making Pertinent Labs and Imaging studies reviewed. (See chart for details) [] Patient presents to the emergency department for left hand pain. An x-ray was performed that showed no acute findings ready by this SCIENCE TUTOR and physician. Raoul wrap placed. Patient educated on RICE protocol and use of tylenol. Advised to follow up with PCP. I discussed with patient all findings and diagnostic testing as well as the need to follow-up with PCP for further evaluation and treatment or return to the ER if any new or worsening symptoms. Strict return precautions were also discussed at length. Patient voiced understanding and agreement with the plan. Patient is hemodynamically stable at the time of disposition. (ZIA BONILLA APRN) Dragon Disclaimer: Dragon Disclaimer: This electronic medical record was generated, in whole or in part, using a voice recognition dictation system. (CHAD,ZIA L PUBLIC HEALTH TRAINING ASSISTANT) Departure Departure: Impression: Primary Impression: Hand contusion Qualified Codes: S60.222A - Contusion of left hand, initial encounter Disposition: HOME / SELF CARE / HOMELESS Condition: GOOD Referrals: KEVIN FELICIANO DO (PCP) Patient Instructions: Hand Contusion, RICE - Routine Care for Injuries Additional Instructions: You were seen in the emergency department for left hand injury. An x-ray was performed that showed no acute findings. You can you take Tylenol or ibuprofen at home. You can also apply ice and elevate the extremity to help with swelling. Follow-up with your primary care provider tomorrow regarding your ER visit if you continue to have pain. Return to the ER if you develop worsening of your pain, increased swelling, decreased range of motion, decreased sensation. EMERGENCY DEPARTMENT GENERAL DISCHARGE INSTRUCTIONS Thank you for coming to [facility] (ED) today and trusting us with you care. We trust that you had a positivie experience in our Emergency Department. If you wish to speak to the department management, you may call the director at [phone]. YOUR FOLLOW UP INSTRUCTIONS ARE FOLLOWS: 1. Do you have a private Doctor? If you do not have a private doctor, please ask for a resource list of physicians or clinics that may be able to assist you with follow up care. 2. The Emergency Physician has interpreted your x-rays. The X-Ray specialist will also review them. If there is a change in the findings, you will be notified in 48 hours when at all possible. 3. A lab test or culture has been done, your results will be reviewed and you will be notified if you need a change in treatment. ADDITIONAL INSTRUCTIONS AND INFORMATION: 1. Your care today has been supervised by a physician who is specially trained in emergency care. Many problems require more than one evaluation for a complete diagnosis and treatment. We recommend that you schedule your follow up appointment as recommended to ensure complete treatment of you illness or injury. If you are unable to obtain follow up care and continue to have a problem, or if your condition worsens, we recommend that you return to the ED. 2. We are not able to safely determine your condition over the phone nor are we able to give sound medical advice over the phone. For these safety reasons, if you call for medical advice we will ask you to come to the ED for further evaluation. 3. If you have any questions regarding these discharge instructions please call the ED at [phone]. SAFETY INFORMATION: In the interest of safety, wellness, and injury prevention; we encourage you to wear your sealbelt, if you smoke; quite smoking, and we encourage family to use a protective helmet for bicycling and other sporting events that present an increased risk for head injury. IF YOUR SYMPTOMS WORSEN OR NEW SYMPTOMS DEVELOP, OR YOU HAVE CONCERNS ABOUT YOUR CONDITION; OR IF YOUR CONDITION WORSENS WHILE YOU ARE WAITING FOR YOUR FOLLOW UP APPOINTMENT; EITHER CONTACT YOUR PRIMARY CARE DOCTOR, THE PHYSICIAN WHOSE NAME AND NUMBER YOU WERE GIVEN, OR RETURN TO THE ED IMMEDIATELY. Splinting Splinting : Location: Left hand Pre-Made Type: RAOUL bandage Pre-Proc Neuro Vasc Exam: normal Post-Proc Neuro Vasc Exam: normal, unchanged from pre-exam (SHELTON AMBROCIO DO) Attending Signature Attending Signature I have reviewed the PA/SCIENCE TUTOR's note and plan of care. I was available for consultation as needed during the patient's visit in the emergency department. I agree with the clinical impression, plan, and disposition. (SHELTON AMBROCIO DO) ZIA BONILLA APRN Mar 17, 2021 22:24 SHELTON AMBROCIO DO Mar 18, 2021 00:17
--- NOTE | 2021-03-17 23:41 | RAD ---
Three-view left hand dated 03/17/2021. No comparison available. CLINICAL INDICATION: Pain. FINDINGS: 3 views left hand show normal bony alignment. No displaced fracture. No periostitis or bone destructi on. No acute osseous or articular abnormality. IMPRESSION: No acute radiographic abnormality. Electronically signed by: Shelton Santos MD (03/17/2021 11:38 PM) [facility]
== END 2021-03-17 23:01 | disposition home or self-care (01) ==
LOC: ER 22:03
DX: S60.222A Contusion of left hand, initial encounter (principal); E78.00 Pure hypercholesterolemia, unspecified; Z88.6 Allergy status to analgesic agent; W23.0XXA Caught, crushed, jammed, or pinched between moving objects, initial encounter; Y93.89 Activity, other specified; Y92.89 Other specified places as the place of occurrence of the external cause; Y99.8 Other external cause status
CPT/HCPCS: 73130; 99283

== ENCOUNTER 2021-04-01 13:40 | Emergency (ER) | payer OTHER ==
[~2021-04-01] VITALS: Ht 152.4 cm; Wt 55.7 kg
--- NOTE | 2021-04-01 14:39 | PHYS DOC ---
Past History Past Medical History: High Cholesterol, Other Additional Past Medical Histor: SUPERIOR MESSENTERIC ARTERY STENT, DVT, gastroparesis Past Surgical History: Hysterectomy, Other Additional Past Surgical Histo: stent placed in abdomen for stenosis, lower back sx Alcohol Use: None Drug Use: None Adult General Chief Complaint Chief Complaint: ABDOMINAL PAIN [facility] HPI Patient is a 61-year-old female presenting today was a history of abdominal pain that started 10 days ago. Patient has a history of gastroparesis and had a stent put in in her SMA in 2017. Pain is constant and is not worse with food pain is worse with resting. Pain is in the lower abdomen radiating to the low back. Patient denies constipation but has diarrhea with green and mucousy stool. In the past patient had a hysterectomy, and a bladder net put in. Patient denies allergies, takes aspirin but no other anticoagulants. Reports she was seen by her primary care physician 48 hours prior for similar complaints, had CT abdomen pelvis obtained and at that time showed potential blockage. Patient is not sure, states all of her images are on my chart but since this was all performed at [facility], we do not have access to this. She was advised to come back to our ER for repeat evaluation, scan of her SMA and potential transfer to [facility] if ischemic bowel is present Review of Systems Review of Systems Fourteen body systems of review of systems have been reviewed. See HPI for pertinent positives and negative responses, other simms all other systems are negative, non-pertinent or non-contributory Allergies Allergies Allergies Coded Allergies Type Severity Reaction Last Updated Verified NSAIDS (Non-Steroidal Anti-Inflamma Adverse Reaction Intermediate is on plavix 05/06/18 Yes Physical Exam Physical Exam Constitutional: Well developed, well nourished, no acute distress, non-toxic appearance. HENT: Normocephalic, atraumatic, bilateral external ears normal, oropharynx moist, no oral exudates, nose normal. Eyes: PERRLA, EOMI, conjunctiva normal, no discharge. Neck: Normal range of motion, no tenderness, supple, no stridor. Cardiovascular: Heart rate regular, sinus rhythm, no murmurs rubs or gallops Lungs & Thorax: Bilateral breath sounds clear to auscultation Abdomen: Bowel sounds normal, soft, no tenderness, no masses, no pulsatile masses. Nonsurgical abdomen, no peritoneal signs Skin: Warm, dry, no erythema, no rash. Back: No tenderness, no CVA tenderness. Extremities: No tenderness, no cyanosis, no clubbing, ROM intact, no edema. Neurologic: Alert and oriented X 3, grossly normal motor & sensory function, no focal deficits noted. Psychologic: Affect normal, judgement normal, mood normal. Current Patient Data Vital Signs Vital Signs Date Time Temp Pulse Resp B/P (MAP) Pulse Ox O2 Delivery O2 Flow Rate FiO2 04/01/21 14:31 98.1 111 18 112/91 (98) 99 Vital Signs Date Time Temp Pulse Resp B/P (MAP) Pulse Ox O2 Delivery O2 Flow Rate FiO2 04/01/21 14:31 98.1 111 18 112/91 (98) 99 Lab Results Laboratory Tests Test 04/01/21 14:48 04/01/21 14:54 Coronavirus (COVID-19)(PCR) Not detected White Blood Count 7.9 x10^3/uL Red Blood Count 3.94 x10^6/uL Hemoglobin 12.5 g/dL Hematocrit 36.3 % Mean Corpuscular Volume 92 fL Mean Corpuscular Hemoglobin 32 pg Mean Corpuscular Hemoglobin Concent 34 g/dL Red Cell Distribution Width 13.2 % Platelet Count 314 x10^3/uL Neutrophils (%) (Auto) 71 % Lymphocytes (%) (Auto) 23 % Monocytes (%) (Auto) 5 % Eosinophils (%) (Auto) 0 % Basophils (%) (Auto) 0 % Neutrophils # (Auto) 5.7 x10^3uL Lymphocytes # (Auto) 1.8 x10^3/uL Monocytes # (Auto) 0.4 x10^3/uL Eosinophils # (Auto) 0.0 x10^3/uL Basophils # (Auto) 0.0 x10^3/uL Sodium Level 138 mmol/L Potassium Level 4.0 mmol/L Chloride Level 101 mmol/L Carbon Dioxide Level 26 mmol/L Anion Gap 11 Blood Urea Nitrogen 9 mg/dL Creatinine 0.7 mg/dL Estimated GFR (Cockcroft-Gault) 85.6 BUN/Creatinine Ratio 13 Glucose Level 95 mg/dL Lactic Acid Level 1.0 mmol/L Calcium Level 9.7 mg/dL Total Bilirubin 0.3 mg/dL Aspartate Amino Transf (AST/SGOT) 14 U/L Alanine Aminotransferase (ALT/SGPT) 22 U/L Alkaline Phosphatase 70 U/L Troponin I Quantitative < 0.017 ng/mL Total Protein 8.2 g/dL Albumin 4.2 g/dL Albumin/Globulin Ratio 1.1 Lipase 104 U/L SARS-CoV-2 Antigen (Rapid) Negative Current Medications Medications (Trade) Dose Ordered Sig/Marnie Route PRN Reason Start Time Stop Time Status Last Admin Dose Admin Iohexol (Omnipaque 300 Mg/ml) 75 ml 1X ONCE IV 04/01/21 15:00 04/01/21 15:01 DC 04/01/21 15:15 Ciprofloxacin (Cipro) 500 mg 1X ONCE PO 04/01/21 16:00 04/01/21 16:01 DC 04/01/21 16:06 Metronidazole (Flagyl) 500 mg 1X ONCE PO 04/01/21 16:00 04/01/21 16:01 DC 04/01/21 16:06 EKG EKG EKG ordered and interpreted by myself at 1530 hrs. as normal rate, sinus rhythm, normal axis. All intervals are normal length with no ST changes. No STEMI Radiology/Procedures Radiology/Procedures CT OF THE ABDOMEN AND PELVIS WITH IV CONTRAST. History: Abdominal pain and prior SMA syndrome with stent Comparison:July 03, 2018. Procedure: Contiguous axial images of the abdomen and pelvis were performed after the administration of 75 cc of Isovue 370 IV contrast. Oral contrast: No. Findings: The celiac axis is not well seen there is a stent in the SMA which appears patent. The colon is collapsed is apparent mild wall thickening without surrounding inflammation. The appendix is normal. The gallbladder is normal. Liver: Unremarkable Spleen: Unremarkable Pancreas: Unremarkable Adrenal Glands: Unremarkable Kidneys: Unremarkable There is no mass or lymphadenopathy. There is no free air. There is no free fluid. The urinary bladder appears normal. Impression: 1. 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 The SMA appears patent. 2. Mild pancolitis. This could be inflammatory such as ulcerative colitis or could be infectious such as pseudomembranous colitis. There is no diverticulitis. There is no bowel wall air to suggest ischemic colitis. End Impression PQRS Compliance Statement: One or more of the following individualized dose reduction techniques were ut ilized for this examination: 1. Automated exposure control 2. Adjustment of the mA and/or kV according to patient size 3. Use of iterative reconstruction technique Electronically signed by: Nguyễn Solis III, MD (04/01/2021 3:29 PM) [facility] Heart Score C/O Chest Pain: No HEART Score for Chest Pain: HEART Score for Chest Pain Response (Comments) Value History Slighlty/Non-Suspicious 0 ECG Normal 0 Age >45 - < 65 1 Risk Factors 1 or 2 Risk Factors 1 Troponin < Normal Limit 0 Total 2 Risk Factors: Risk Factors: DM, Current or recent (<one month) smoker, HTN, HLP, family history of CAD, obesity. Risk Scores: Risk Factors: DM, Current or recent (<one month) smoker, HTN, HLP, family history of CAD, obesity. Course & Med Decision Making Course & Med Decision Making ABCs unremarkable. I disclosed entirety of ER findings and discussed most likely diagnosis of abdominal pain with etiology likely being colitis in nature. Other diagnoses were discussed with patient such as restenosed SMA, ACS, and other intra-abdominal abnormalities but all deemed less likely causes of patient's presentation. Given patient's reported membranous findings in stool, joint decision made to start antibiotic treatment. At present I disclose there is no indication for emergent transfer to [facility] for intervention on patient's patent SMA stent, her work-up and presentation are not consistent with acute SMA occlusion. Patient has good access to care with close follow-up previously scheduled for tomorrow. Plan of care discussed at length with need for close outpatient follow-up to review today's ER visit stressed. Strict return precautions were also discussed at length with good understanding verbalized by patient. Patient voiced understanding and agreement with the plan. Patient knows to come back for repeat evaluation if concerning signs or symptoms present prior to outpatient follow-up. Hemodynamically stable, ambulatory and well-appearing at time of disposition. Dragon Disclaimer Dragon Disclaimer This electronic medical record was generated, in whole or in part, using a voice recognition dictation system. Departure Departure: Impression: Primary Impression: Pancolitis Additional Impression: SMAS (superior mesenteric artery syndrome) Disposition: HOME / SELF CARE / HOMELESS Condition: STABLE Referrals: KEVIN FELICIANO DO (PCP) Patient Instructions: Colitis Additional Instructions: As discussed prior to ER departure, your vitals, physical exam and comprehensive ER work-up were nonconcerning for any emergent or surgical issues. Your SMA stent appeared patent. CT imaging findings were concerning though for pancolitis of unknown etiology. Joint decision was made to start antibiotics to treat infectious causes, you require outpatient GI follow-up to rule out any potential inflammatory causes. Please take antibiotics as scheduled to completion. Please keep follow-up with your GP and other outpatient specialists as previously scheduled. Please return to the ER if any emergent or surgical findings present prior to outpatient follow-up. It was a pleasure to take care of you and I wish you the best going forward Scripts Metronidazole (METRONIDAZOLE) 500 Mg Tablet 1 TAB PO TID for colitis for 10 Days, #30 TAB 0 Refills Prov: BONNIE ROYAL DO 04/01/21 Ciprofloxacin Hcl (CIPROFLOXACIN HCL) 500 Mg Tablet 1 TAB PO BID for colitis, #14 TAB Prov: BONNIE ROYAL DO 04/01/21 Problem Qualifiers BONNIE ROYAL DO Apr 01, 2021 14:39
[2021-04-01] MEDS: IOHEXOL 300 MG/ML 75 ML VIAL. IV ONE (15:15)
--- NOTE | 2021-04-01 15:31 | RAD ---
CT OF THE ABDOMEN AND PELVIS WITH IV CONTRAST. History: Abdominal pain and prior SMA syndrome with stent Comparison:July 03, 2018. Procedure: Contiguous axial images of the abdomen and pelvis were performed after the administration of 75 cc o f Isovue 370 IV contrast. Oral contrast: No. Findings: The celiac axis is not well seen there is a stent in the SMA which appears patent. The colon is colla psed is apparent mild wall thickening without surrounding inflammation. The appendix is normal. The g allbladder is normal. Liver: Unremarkable Spleen: Unremarkable Pancreas: Unremarkable Adrenal Glands: Unremarkable Kidneys: Unremarkable There is no mass or lymphadenopathy. There is no free air. There is no free fluid. The urinary bladder appears normal. Impression: 1. 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 The SMA appears patent. 2. Mild pancolitis. This could be inflammatory such as ulcerative colitis or could be infectious such as pseudomembranous colitis. There is no diverticulitis. There is no bowel wall air to suggest [place] colitis. End Impression PQRS Compliance Statement: One or more of the following individualized dose reduction techniques were utilized for this examinat ion: 1. Automated exposure control 2. Adjustment of the mA and/or kV according to patient size 3. Use of iterative reconstruction technique Electronically signed by: Nguyễn Solis III, MD (04/01/2021 3:29 PM) [facility]
[2021-04-01 15:33] LABS: BASO % 0 % (0-3); EOS % 0 % (0-3); HEMATOCRIT 36.3 % (36.0-47.0); HEMOGLOBIN 12.5 g/dL (12.0-15.5); LYMPH # 1.8 x10^3/uL (1.0-4.8); LYMPH % 23 % (24-48); MEAN CORPUSCULAR HEMOGLOBIN 32 pg (25-35); MEAN CORPUSCULAR HGB CONC 34 g/dL (31-37); MEAN CORPUSCULAR VOLUME 92 fL (79-100); MONO # 0.4 x10^3/uL (0.0-1.1); MONO % 5 % (0-9); NEUT # 5.7 x10^3uL (1.8-7.7); NEUT % 71 % (31-73); PLATELET COUNT 314 x10^3/uL (140-400); RED BLOOD COUNT 3.94 x10^6/uL (3.50-5.40); RED CELL DISTRIBUTION WIDTH 13.2 % (11.5-14.5); WHITE BLOOD COUNT 7.9 x10^3/uL (4.0-11.0)
[2021-04-01 15:40] LABS: CALCIUM 9.7 mg/dL (8.5-10.1); CREATININE 0.7 mg/dL (0.6-1.0); GFR 85.6
[2021-04-01 15:47] LABS: ALBUMIN 4.2 g/dL (3.4-5.0); ALBUMIN/GLOBULIN RATIO 1.1 (1.0-1.7); TOTAL BILIRUBIN 0.3 mg/dL (0.2-1.0); TOTAL PROTEIN 8.2 g/dL (6.4-8.2)
--- NOTE | 2021-04-01 15:53 | EKG ---
[address] [address] Test Date: 2021-04-01 Test Time: 15:24:32 Pat Name: GLADYS VANN Department: Room: Gender: F Criminal Justice Lawyer: BRI : 1960 Requested By: BONNIE ROYAL Order Number: [id number] Reading MD: Shyam Clemente MD Measurements Intervals [place] Rate: 78 P: 17 SD: 180 QRS: 31 QRSD: 76 T: 28 QT: 378 QTc: 434 Interpretive Statements SINUS RHYTHM Electronically Signed On 04-01-2021 17:24:42 CDT by Shyam Clemente MD
[2021-04-01] MEDS ORDERED: METR-34 PO (15:58)
[2021-04-01] MEDS ORDERED: CIPR500T2 PO (15:58)
[2021-04-01 16:00] VITALS: BP 117/74
[2021-04-01] MEDS: CIPROFLOXACIN HCL 500 MG TABLET PO ONE (16:06)
[2021-04-01] MEDS: metroNIDAZOLE 500 MG TABLET PO ONE (16:06)
== END 2021-04-01 16:17 | disposition home or self-care (01) ==
LOC: ER 13:40
DX: K51.00 Ulcerative (chronic) pancolitis without complications (principal); K55.1 Chronic vascular disorders of intestine; E78.00 Pure hypercholesterolemia, unspecified; Z90.710 Acquired absence of both cervix and uterus; Z86.718 Personal history of other venous thrombosis and embolism; Z88.6 Allergy status to analgesic agent; Z20.822 Contact with and (suspected) exposure to COVID-19
CPT/HCPCS: 36415; 74177; 80053; 83605; 83690; 84484; 85025; 87040; 87426; 93005; 99285; C9803; Q9967; U0003

== ENCOUNTER 2021-07-13 10:31 | Emergency (ER) | payer OTHER ==
[~2021-07-13] VITALS: Ht 152.4 cm; Wt 55.7 kg
[~2021-07-13 10:31] MED LIST changes: +CIPR500T2 PO; +METR-34 PO
[2021-07-13] MEDS ORDERED: IV NORMAL SALINE 1,000ML 1,000 ML IV SCH (11:00)
[2021-07-13] MEDS ORDERED: diphenhydrAMINE 50 MG/ML VIAL IVP ONE (11:00)
[2021-07-13] MEDS ORDERED: METOCLOPRAMIDE HCL 10 MG/2 ML VIAL. IVP ONE (11:00)
[2021-07-13] MEDS ORDERED: FAMOTIDINE 20 MG/2 ML VIAL IVP ONE (11:00)
--- NOTE | 2021-07-13 11:18 | PHYS DOC ---
Past History Past Medical History: High Cholesterol, Other Additional Past Medical Histor: SUPERIOR MESSENTERIC ARTERY STENT, DVT, gastroparesis Past Surgical History: Hysterectomy, Other Additional Past Surgical Histo: stent placed in abdomen for stenosis, lower back sx, bladder mesh Smoking: Non-smoker Alcohol Use: None Drug Use: None General Adult EDM: Chief Complaint: ABDOMINAL PAIN HPI: HPI: Patient is a 51-year-old female presenting with 4 days of nausea, vomiting, "tenesmus" abdominal cramping, pelvic pain, and diarrhea. She was diagnosed with gastroparesis 3 years ago. 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 Patient was taken to [facility] in [place] for surgical placement of arterial stent. After this procedure she developed gastroparesis secondary to decreased blood supply to her stomach. At that time her symptoms have been managed with diet, exercise and medications. In March patient was hospitalized for similar symptoms and diagnosed with pancolitis. Symptoms resolved after 2 weeks on antibiotics including "Flagyl and Cipro" Patient reports current symptoms feel similar to her episode of pancolitis versus simply her baseline gastroparesis. Last bowel movement 3 days ago watery stool. Ate full meal . Was able to drink some broth yesterday. Reports mild lightheadedness which she believes is due to not being able to eat. Denies fever, chills, chest pain, shortness of breath, hematuria, hematochezia, hematemesis or melena. Patient has home prescription for Zofran but has not taken any today. She states she is very comfortable managing her gastroparesis and flares. However the pain this time is more pelvic and rectal and the tenesmus is worse. Review of Systems: Review of Systems: Constitutional: Denies fever or chills Eyes: Denies redness or eye pain HENT: Denies nasal congestion or sore throat Respiratory: Denies cough or shortness of breath Cardiovascular: Denies chest pain or palpitations GI: Reports abdominal pain, nausea, and vomiting. Denies hematemesis, melena, or hematochezia. : Denies dysuria or hematuria Integument: Denies rash or skin lesions Neurologic: Denies headache, focal weakness or sensory changes Complete systems were reviewed and found to be within normal limits, except as documented in this note. Current Medications: Current Meds: Current Medications Medications (Trade) Dose Ordered Sig/Marnie Start Time Stop Time Status Last Admin Dose Admin Diphenhydramine HCl (Benadryl) 25 mg 1X ONCE 07/13/21 11:00 07/13/21 11:01 UNV Famotidine (Pepcid Vial) 20 mg 1X ONCE 07/13/21 11:00 07/13/21 11:01 UNV Metoclopramide HCl (Reglan Vial) 10 mg 1X ONCE 07/13/21 11:00 07/13/21 11:01 UNV Sodium Chloride 1,000 ml @ 1,000 mls/hr Q1H 07/13/21 11:00 07/13/21 11:59 UNV 07/13/21 11:00 1,000 MLS/HR Allergies: Allergies: Allergies Coded Allergies Type Severity Reaction Last Updated Verified NSAIDS (Non-Steroidal Anti-Inflamma Adverse Reaction Intermediate is on plavix 05/06/18 Yes Physical Exam: PE: Constitutional: Well developed, well nourished, no acute distress, non-toxic appearance HENT: Normocephalic, atraumatic Eyes: EOMI, conjunctiva normal, no discharge Neck: Normal range of motion, supple Lungs & Thorax: No respiratory distress, equal chest rise and fall. CTAB CV: Regular rate and rhythm. Abdomen: Soft, non-distended, non-tenderness, no erythema, no ecchymosis. BS x 4 Skin: Warm, dry, no erythema, no rash Back: No tenderness, no deformities Extremities: No tenderness, ROM intact, no edema Neurologic: Alert and oriented X 3, normal motor function, normal sensory function, no focal deficits noted Psychologic: Affect frustrated, judgment normal Current Patient Data: Vital Signs: Vital Signs Date Time Temp Pulse Resp B/P (MAP) Pulse Ox O2 Delivery O2 Flow Rate FiO2 07/13/21 10:48 96.2 103 18 122/80 (94) 98 EKG: EKG: At 1121. RR 790. P116. DC 182. QRS 82. QT/QTc 470/534. Sinus rhythm. No ST elevation. [] Radiology/Procedures: Radiology/Procedures: PROCEDURE: CT ABD PELV W/ORAL&IV CONTRAST INDICATION: Reason: abdominal pain X 4 days , N/V hx: gastropariesis / Spl. Instructions: OMNI 300 75ML IV / History: COMPARISON: March 2021 TECHNIQUE: Axial CT images were obtained through the abdomen and pelvis with intravenous contrast. One or more of the following individualized dose reduction techniques were utilized for this examination: 1. Automated exposure control; 2. Adjustment of the mA and/or kV according to patient size; 3. Use of iterative reconstruction technique. FINDINGS: Vascular: There is a stent within the proximal superior mesenteric artery. Scattered calcific atherosclerosis. Hepatobiliary: Repeat demonstration of a low-density lesion within the right lobe the liver which appears similar prior. Too small to characterize but a common finding. Pancreas: No peripancreatic edema. Spleen: Spleen unremarkable. Renal/Bladder: Urinary bladder is partially distended. No hydronephrosis. Gastrointestinal: Colonic diverticulosis. No dilated loops of bowel to suggest obstruction. No periappendiceal inflammatory changes. Sclerotic focus in the bilateral hemipelvis again seen and most common cause would be bone island. Degenerative changes of the hips and spine. IMPRESSION: * No evidence of bowel obstruction or appendicitis. * No hydronephrosis. Electronically signed by: Padilla Hankins MD (07/13/2021 12:16 PM) [id number] Heart Score: C/O Chest Pain: N/A Course & Med Decision Making: Course & Med Decision Making Pertinent Labs and Imaging studies reviewed. (See chart for details) Patient presents with abdominal cramping, tenesmus, nausea, vomiting and diarrhea x4 days. Supportive care initiated. Labs obtained and posted to chart. CT abdomen/pelvis without acute finding. Patient stable for discharge with outpatient follow-up with PCP/GI. Discussed findings and plan with patient and spouse, who acknowledge understanding and agreement. Maxine Disclaimer: Maxine Disclaimer: This electronic medical record was generated, in whole or in part, using a voice recognition dictation system. Departure Departure: Impression: Primary Impression: Abdominal pain Qualified Codes: R10.30 - Lower abdominal pain, unspecified Additional Impression: Tenesmus Disposition: HOME / SELF CARE / HOMELESS Condition: STABLE Referrals: KEVIN FELICIANO DO (PCP) Patient Instructions: Abdominal Pain, [id number] Additional Instructions: Please follow closely with your family physician and/or GI specialist for further evaluation and treatment. Scripts Diazepam (VALIUM) 2 Mg Tablet 2 MG PO TID PRN for Tenesmus, #14 TAB Prov: COLTEN AMBROCIO DO 07/13/21 COLTEN AMBROCIO DO Jul 13, 2021 11:18
[2021-07-13 11:27] LABS: BASO # 0.1 x10^3/uL (0.0-0.2); BASO % 1 % (0-3); EOS # 0.1 x10^3/uL (0.0-0.7); EOS % 1 % (0-3); HEMATOCRIT 37.6 % (36.0-47.0); HEMOGLOBIN 12.6 g/dL (12.0-15.5); LYMPH # 2.6 x10^3/uL (1.0-4.8); LYMPH % 26 % (24-48); MEAN CORPUSCULAR HEMOGLOBIN 32 pg (25-35); MEAN CORPUSCULAR HGB CONC 34 g/dL (31-37); MEAN CORPUSCULAR VOLUME 94 fL (79-100); MONO # 0.5 x10^3/uL (0.0-1.1); MONO % 5 % (0-9); NEUT # 6.7 x10^3uL (1.8-7.7); NEUT % 67 % (31-73); PLATELET COUNT 262 x10^3/uL (140-400); RED CELL DISTRIBUTION WIDTH 13.9 % (11.5-14.5)
[2021-07-13] MEDS ORDERED: IOHEXOL 300 MG/ML 75 ML VIAL. IV ONE (11:30)
[2021-07-13 11:35] LABS: CALCIUM 8.9 mg/dL (8.5-10.1); CREATININE 0.9 mg/dL (0.6-1.0); GFR 64.1; POTASSIUM 4.1 mmol/L (3.5-5.1)
[2021-07-13 12:04] LABS: ALBUMIN 4.1 g/dL (3.4-5.0); ALBUMIN/GLOBULIN RATIO 1.5 (1.0-1.7); TOTAL BILIRUBIN 0.4 mg/dL (0.2-1.0); TOTAL PROTEIN 6.9 g/dL (6.4-8.2)
--- NOTE | 2021-07-13 12:18 | RAD ---
INDICATION: Reason: abdominal pain X 4 days , N/V hx: gastropariesis / Spl. Instructions: OMNI 300 7 5ML IV / History: COMPARISON: March 2021 TECHNIQUE: Axial CT images were obtained through the abdomen and pelvis with intravenous contrast. One or more of the following individualized dose reduction techniques were utilized for this examinat ion: 1. Automated exposure control; 2. Adjustment of the mA and/or kV according to patient size; 3 . Use of iterative reconstruction technique. FINDINGS: Vascular: There is a stent within the proximal superior mesenteric artery. Scattered calcific atheros clerosis. Hepatobiliary: Repeat demonstration of a low-density lesion within the right lobe the liver which kylah ears similar prior. Too small to characterize but a common finding. Pancreas: No peripancreatic edema. Spleen: Spleen unremarkable. Renal/Bladder: Urinary bladder is partially distended. No hydronephrosis. Gastrointestinal: Colonic diverticulosis. No dilated loops of bowel to suggest obstruction. No periap pendiceal inflammatory changes. Sclerotic focus in the bilateral hemipelvis again seen and most commo n cause would be bone island. Degenerative changes of the hips and spine. IMPRESSION: * No evidence of bowel obstruction or appendicitis. * No hydronephrosis. Electronically signed by: Padilla Hankins MD (07/13/2021 12:16 PM) [id number]
[2021-07-13 12:39] LABS: BARBITURATES NEG (NEG); BENZODIAZEPINES NEG (NEG); CANNABINOIDS POS (NEG); COCAINE NEG (NEG); METHADONE NEG (NEG); OPIATES NEG (NEG); PHENCYCLIDINE NEG (NEG)
[2021-07-13 12:40] LABS: AMPHETAMINE/METHAMPHETAMINE NEG (NEG)
[2021-07-13 12:44] LABS: BILIRUBIN,URINE NEG (NEG); CLARITY,URINE CLEAR; COLOR,URINE YELLOW; GLUCOSE,URINE NEG (NEG); NITRITE,URINE NEG (NEG); UROBILINOGEN,URINE 0.2 mg/dL (0.2 mg/dL)
[2021-07-13 12:45] LABS: BACTERIA,URINE 0 /HPF (0-FEW); SQUAMOUS EPITHELIAL CELL,UR MOD /LPF
[2021-07-13] MEDS ORDERED: DIAZ2TAB PO (13:49)
[2021-07-13 14:00] VITALS: BP 121/68
--- NOTE | 2021-07-13 20:23 | EKG ---
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
== END 2021-07-13 14:03 | disposition home or self-care (01) ==
LOC: ER 10:31
DX: R10.30 Lower abdominal pain, unspecified (principal); R11.2 Nausea with vomiting, unspecified; R19.7 Diarrhea, unspecified; E78.00 Pure hypercholesterolemia, unspecified; Z90.710 Acquired absence of both cervix and uterus; Z95.5 Presence of coronary angioplasty implant and graft; Z86.718 Personal history of other venous thrombosis and embolism; Z88.6 Allergy status to analgesic agent
CPT/HCPCS: 36415; 74177; 80053; 80307; 81001; 82553; 83690; 84484; 85025; 87086; 93005; 96361; 96374; 96375; 99285; J1200; J2765; J3490; J7030; Q9967

== ENCOUNTER → 2021-08-31 | Outpatient (CLI) | payer OTHER ==
[~2021-08-31] MED LIST changes: +DIAZ2TAB PO; +IOHEXOL 240 MG/ML 50ML VIAL. ONE; +IOHEXOL 300 MG/ML 75 ML VIAL. IV ONE
--- NOTE | 2021-08-31 12:38 | RAD ---
EXAMINATION: CT ABDOMEN+PELVIS WO+W CLINICAL HISTORY: LLQ PAIN X 6 MO. N/V. TECHNIQUE: Serial axial images obtained through the abdomen and pelvis with and without intravenous c ontrast with sagittal and coronal planar reconstructions also provided for review. CT Dose Reduction Employed: One or more of the following individualized dose reduction techniques wer e utilized for this examination: 1. Automated exposure control 2. Adjustment of the mA and/or kV ac cording to patient size 3. Use of iterative reconstruction technique. COMPARISON: 07/13/2021 FINDINGS: Minimal bibasilar subsegmental atelectasis and/or scarring. Liver, gallbladder, pancreas, spleen, adrenal glands, and kidneys unremarkable. Minimally filled urinary bladder suboptimally evaluated. Hysterectomy. Mild wall thickening in the distal descending, transverse, and proximal to mid descending colon, mary ann ot exclude mild colitis. Nondistended distal descending and sigmoid colon with diverticulosis, simila r to prior study. No definitive evidence of acute diverticulitis. No dilated bowel. Appendix within n ormal limits. Mild arterial atherosclerotic calcification without aneurysm. Endovascular stent graft at the celiac artery origin. Multilevel thoracolumbar degenerative changes. IMPRESSION: No definitive evidence of acute abdominopelvic abnormality, however, cannot exclude mild colitis as d escribed. Electronically signed by: Trung Alegria DO (08/31/2021 12:35 PM) [facility]
== END ==
LOC: CT 09:52
DX: R10.32 Left lower quadrant pain (principal); M47.815 Spondylosis without myelopathy or radiculopathy, thoracolumbar region; Z90.710 Acquired absence of both cervix and uterus
CPT/HCPCS: 74178; Q9967